=== PATIENT | female | born 1960 | race Caucasian/White ===

== ENCOUNTER 2017-11-28 12:04 | Emergency (ER) | payer BC, SELFPAY ==
[2017-11-28 12:06] VITALS: BP 154/85; PULSE 74; RESP 16; TEMP 36.2; O2SAT 99; BMI 29.5
[2017-11-28 12:17] LABS: Bacteria 0 SEEN /hpf (None Seen); Mucous, Urine 0 SEEN /hpf (<or=2+); Squamous Epithelial Cells - UA 0 SEEN /hpf (5-10); White Blood Cells 0 SEEN /hpf (0-5)
[2017-11-28 12:36] LABS: Color, Urine Yellow (Yellow); Glucose, Dipstick Normal (Normal); Ketone-Dipstick 50 mg/dl (Negative); Leukocyte Esterase-Dipstick Negative /ul (Negative); Nitrite-Dipstick Negative (Negative); Occult Blood-Urine 250 /ul (Negative); Protein-Dipstick Negative (Negative); Specific Gravity, Urine 1.025 (1.002-1.030); Urine Bilirubin Dipstick Negative (Negative); Urine Clarity Clear (Clear); Urine Urobilinogen Normal (Normal)
--- NOTE | 2017-11-28 12:41 | CT_ITS ---
STUDY: CT ABDOMEN AND PELVIS WITHOUT CONTRAST REASON FOR EXAM: Female, 57 years old. 2 day history of right flank pain. RADIATION DOSAGE (If Supplied By Facility): CTDIvol = ( 12.49 ) mGy, DLP = ( 569.12 ) mGycm TECHNIQUE: Transaxial images were obtained from the dome of the diaphragm to the symphysis pubis without oral contrast, and without intravenous contrast. Sagittal and coronal images were reconstructed. Individualized dose optimization techniques were used for this CT. COMPARISON: None. FINDINGS: Calcified granuloma at the right lung base. The visualized portions of the heart are within normal limits. Normal liver. Normal gallbladder and extrahepatic biliary system. Normal spleen. Normal pancreas. Normal bilateral adrenal glands. There is engorgement of the right kidney. Right hydronephrosis and hydroureter due to a 5 mm calculus in the distal portion of the right ureter. There is evidence of right perinephric stranding. There are 2 tiny nonobstructive calculi in the inferior pole of the right kidney. Tiny nonobstructive calculi in the left kidney. Normal visualized stomach. Normal small intestine. Normal colon. The appendix is visualized and appears normal. There is scattered atherosclerotic calcification of the abdominal aorta, without a demonstrated aneurysm. Normal inferior vena cava. Normal retroperitoneum. Normal urinary bladder. Normal abdominal wall. There are degenerative changes of the visualized lumbar spine. CT/Abdomen/Pelvis without Cont IMPRESSION: Right hydronephrosis and right hydroureter due to a 5 mm calculus in the distal portion of the right ureter. Nonobstructive bilateral intrarenal calculi. Electronically Signed: Mateus Hedrick MD at 13:59 EST Tel [phone], Service support ,
[2017-11-28 12:44] LABS: Red Blood Cells-Urine 10-25 SEEN /hpf (0-5)
[2017-11-28] MEDS: 0.9% Normal Saline 1,000 ML 150 ML IV (13:14)
[2017-11-28] MEDS: Ondansetron 4 MG/2 ML Vial IV ×2 (13:15→14:11)
[2017-11-28 13:19] VITALS: BP 164/80; PULSE 65; RESP 16; O2SAT 98
[2017-11-28 13:23] LABS: Absolute Lymphocyte Count 1.33 X10^3/ul (0.83-4.51); Absolute Neutrophil Count 11.3 X10^3/uL (2.0-7.7); Basophil# 0.02 X10^3/uL; Basophil% 0.1 % (0-1); Hematocrit 41.3 % (37-47); Hemoglobin 13.6 g/dl (12.0-15.0); Lymphocyte # 1.33 X10^3/ul (4.0); Lymphocyte % 9.7 % (19-41); Mean Corp Hgb Conc 32.9 g/gl (32-36); Mean Corpuscular Volume 94.1 fL (81-99); Monocyte# 0.98 X10^3/uL; Monocyte% 7.2 % (0-10); Neutrophil # 11.31 X10^3/uL (2.7-7.7); Neutrophil % 82.9 % (47-70); Platelet Count 289 K/mm3 (150-450); RBC Distribution Width SD 44.8 fl (35.1-43.9); Red Blood Count 4.39 M/mm3 (4.2-5.4); White Blood Count 13.7 K/mm3 (4.4-11.0)
[2017-11-28 13:25] LABS: POSITIVE COUNT NO; POSITIVE DIFFERENTIAL NO; POSITIVE MORPHOLOGY NO
[2017-11-28 13:36] LABS: Anion Gap 10 (5-15); BUN 16 mg/dL (7-18); BUN/Creat Ratio 14.8 RATIO (10-20); Calcium,Total 9.5 mg/dL (8.5-10.1); Chloride 104 mmol/L (98-107); Creatinine, Serum 1.08 mg/dL (0.55-1.02); EST Glomerular Filtration Rate 56 mL/min (>60); Est Glom Filt Rate - Afr Amer 68 mL/min (>60); Estimated Creatinine Clearance 48.69 ml/min; Glucose 119 mg/dL (74-106); Potassium 3.6 mmol/L (3.5-5.1); Sodium Level 141 mmol/L (136-145)
[2017-11-28 13:40] LABS: Pregnancy, Serum, hCG Quali. NEGATIVE Negative (0-9 Nonpreg)
[2017-11-28] MEDS: Ketorolac 30 MG/ML Syringe IV (14:10)
--- NOTE | 2017-11-28 15:07 | ED.VISSUMM ---
- ER Visit Summary Date of Service: 11/28/17 Chief Complaint: Right flank pain History of Present Illness: The patient is a 57 F 3 day history of right flank pain. She states she had right lower quadrant pain for 2 days and then today has right lower back pain and right lower quadrant pain. She has no urinary symptoms. She denies nausea, vomiting, or diarrhea. She has not had fever. She denies any prior abdominal surgeries. She does report having a kidney stone several years ago. Physical Examination: Vital signs are significant for blood pressure 154/85, otherwise unremarkable. Patient is in no acute distress but does appear uncomfortable. Head and neck examination is normal. Heart is regular rate and rhythm. Palpable pulses are noted throughout. Lungs are clear with good air movement throughout. Abdomen is soft with mild tenderness in the right lower quadrant. There is no guarding or rebound. She has no CVA tenderness. Extremity examination is unremarkable with full range of motion. Neurologic examination reveals no focal deficits. Test Results: CBC was a white count 13.7 with 83% neutrophils. Chemistry studies reveal creatinine 1.08. Urinalysis shows blood but no sign of infection. test negative. CT flank reveals right-sided hydronephrosis and hydroureter due to a 5 mm calculus in the distal portion of the right ureter. Emergency Department Course and Treatment: Patient was initially given morphine and Zofran for pain. She was still reporting pain of an 8 out of 10 so was given morphine, Zofran, and Toradol. On repeat evaluation patient states she is pain-free at this time. Test results were discussed with her and at bedside. I also discussed the patient with Dr. Garcia who the patient is to follow-up with as an outpatient. If her pain worsens or she has any other concerns to return to emergency room for repeat evaluation. Treatment Plan: [] Disposition: Discharge Impression: Right-sided ureterolithiasis This note was generated with [employer] dictation software. It may contain incorrect words, spelling, and punctuation that were not noted in review of the chart prior to signing ED Disposition - Plan for ED Patient: Disposition: Home or Assisted Living Chief Complaint: Flank Pain Instructions: ED Stone Renal W Colic Prescriptions: Oxycodone HCl/Acetaminophen [Percocet 5/325] 1 - 2 tablet PO Q6H PRN PRN 5 Days #20 tablet PRN Reason: Pain Ondansetron [Zofran Odt] 4 mg PO Q8H PRN PRN #10 tab PRN Reason: Nausea Tamsulosin HCl [Flomax] 0.4 mg PO DAILY 14 Days #14 cap Ketorolac [Toradol] 10 mg PO Q6H PRN #20 tab PRN Reason: Pain Referrals: Addis Taylor MD [Primary Care Provider] - Foster Garcia MD [STAFF PHYSICIAN] - 3-5 Days if not improving
--- NOTE | 2017-11-28 15:10 | ED.DEP ---
ED Disposition - Plan for ED Patient: Disposition: Home or Assisted Living Chief Complaint: Flank Pain Instructions: ED Stone Renal W Colic Prescriptions: Oxycodone HCl/Acetaminophen [Percocet 5/325] 1 - 2 tablet PO Q6H PRN PRN 5 Days #20 tablet PRN Reason: Pain Ondansetron [Zofran Odt] 4 mg PO Q8H PRN PRN #10 tab PRN Reason: Nausea Tamsulosin HCl [Flomax] 0.4 mg PO DAILY 14 Days #14 cap Ketorolac [Toradol] 10 mg PO Q6H PRN #20 tab PRN Reason: Pain Referrals: Addis Taylor MD [Primary Care Provider] - Foster Garcia MD [STAFF PHYSICIAN] - 3-5 Days if not improving
--- NOTE | 2017-11-28 15:11 | NURSING ---
DR ANICETO WADSWORTH
[2017-11-28 15:34] VITALS: BP 110/79; PULSE 71; RESP 16; O2SAT 99
== END 2017-11-28 15:34 | disposition home or self-care (01) ==
PROVIDERS: Emergency Provider Emergency Medicine; Family Provider Family Medicine; PCP Family Medicine
DX: N13.2 Hydronephrosis with renal and ureteral calculous obstruction (principal); Z87.442 Personal history of urinary calculi
CPT/HCPCS: 74176; 80048; 81001; 84703; 85025; 96361; 96374; 96375; 96376; 99284; J7030; A4216; J2405